=== PATIENT | female | born 1990 | race Caucasian/White ===

== ENCOUNTER 2021-12-16 08:45 | Emergency (ER) | payer OTHER, SELFPAY ==
[2021-12-16 08:52] VITALS: BP 150/106; PULSE 87; RESP 16; O2SAT 100; BMI 34.4
[2021-12-16 09:22] LABS: COVID-19 Test Negative (Negative)
--- NOTE | 2021-12-16 10:24 | ED.URI ---
HPI - URI/Sore Throat General Chief Complaint: Upper Respiratory Symptoms Stated Complaint: body aches chils vomiting sore throat Time Seen by Provider: 12/16/21 10:24 Source: patient Mode of arrival: ambulatory Limitations: no limitations History of Present Illness HPI Narrative: 31 yr old female presents requesting COVID testing. Patient is experiencing body aches, headache, fatigue, fevers, chills, sore throat. Boyfriend at home is COVID positive. She tells me she has taken multiple at home test and they are negative. Fully vaccinated with 3 doses of pfizer.? Denies SOB, CP, BURK, weakness. Eating and drinking well. In good spirits. No other complaints at this time. MD elicited complaint: sore throat Consistency: constant Severity: mild Able to tolerate fluids by mouth: Yes Exacerbating factors: nothing Relieving factors: nothing Context: sick contacts (boyfriend + ) Treatments prior to arrival: none Related Data Allergies Allergy/AdvReac Type Severity Reaction Status Date / Time Unable to Assess Allergy Unverified 12/16/21 10:37 Review of Systems Review of Systems: Constitutional : + Fever, + Chills, + fatigue, + Malaise ENT/Mouth : + sore throat, No runny nose Eyes: No Discharge Cardiovascular : No Chest Pain, No SOB Respiratory : No Cough, No Sputum Gastrointestinal : No Nausea, No Vomiting, No Diarrhea Genitourinary : No Dysuria, No Urinary Frequency Musculoskeletal : + Myalgia Skin : No rash Neuro : No Headache Yes all other systems are reviewed and are negative [facility] Past Medical History Attestation statement: The following information was validated with the patient. Source: old records reviewed and nursing notes reviewed Medical History No known health problems Social History Social History Advance Directives: No Advance Directives Information Provided: No Patient : No Physical Exam Vital Signs: Vital Signs: Last Vital Signs Pulse 87 12/16/21 08:52 Resp 16 12/16/21 08:52 BP 150/106 H 12/16/21 08:52 Pulse Ox 100 12/16/21 08:52 BMI result Body Mass Index 34.4 Vital signs stable patient noted to be hypertensive, will repeat prior to discharge all other vital signs are stable Appearance: Alert.? Oriented X3.? No acute distress.? Head: Normocephalic, atraumatic, no step-offs or deformities Eyes: Pupils equal, round and reactive to light.?? Neck: Normal inspection.? Neck supple.? CVS: Normal heart rate and rhythm.? Pulses normal.? Respiratory: No respiratory distress.? Breath sounds normal.? Abdomen: Soft and nontender.? Skin: Skin warm and dry.? Normal skin color.? Normal skin turgor.? Extremities: No lower extremity edema.? No calf ttp. 5/5 strength to bilateral upper and lower extremities Neuro: Oriented X 3.? No motor deficit.? No sensory deficit. Course Reevaluation(s) Reevaluation #1: Patient is noted to be COVID negative, however symptoms consistent with COVID-19. Patient also has a close contact with somebody who is COVID positive therefore she will be treated as if she were positive. Vital signs are stable however.? I have given patient strict return precautions.? I have educated on diagnosis and treatment plan.? I have given them red flag symptoms and have told him to return with new or worsening symptoms.? I have outlined these on their discharge. Unlikely that this is ACS, patient denies chest pain. Lungs are clear unlikely pneumonia. Patient's vital signs stable, patient is not tachycardic, tachypneic or hypoxic, no calf tenderness to palpation, unlikely PE. Time: 10:38 MDM - URI/Sore Throat [facility] Narrative Medical decision making narrative: [id number] 31 yo female presents with covid like sx requesting test. PE benign Plan- covid test. Medical Records Attestation: I reviewed the patient's medical records. Lab Data Attestation: I reviewed the patient's lab results. Labs: Lab Results 12/16/21 Range/Units 08:56 COVID-19 (LIA) Negative (Negative) COVID-19 Clin Com See Note Critical Care Time Critical Care Time Critical Care Time: No Discharge Plan Discharge Clinical Impression: Upper respiratory infection Patient Disposition: Home, Self-Care Instructions: COVID-19 (Coronavirus Disease 2019) (ED) Additional Instructions: Take your medications as prescribed. If you were prescribed antibiotics today, it is important that you take your medication to their entirety, do not skip any doses, do not finish them early. Today tested negative for COVID-19 however your symptoms are consistent with COVID and you have had sick contacts. We will treat his of your COVID positive. Take Ibuprofen or Tylenol as needed for fevers or body aches. Quarantine for 5 days and ensure you wear a mask. After 5 days you should wear a mask for 5 days after that. Practice social distancing and good hand hygiene. Drink plenty of fluids. Follow-up with your primary care provider this week. Return to the emergency department with new or worsening symptoms. In case of emergency call 911 You can purchase a pulse oximeter from your local pharmacy or grocery store, and monitor your oxygen saturation if it goes below 94% you should return to the emergency department for further evaluation. Referrals: Physician,None [Primary Care Provider] - 2 days Stand Alone Forms: Work/School Release
[2021-12-16] MEDS: Ketorolac Tromethamine 30 MG/ML VIAL IM (10:59)
== END 2021-12-16 11:08 | disposition home or self-care (01) ==
PROVIDERS: Emergency Provider Emergency Medicine
DX: J06.9 Acute upper respiratory infection, unspecified (principal); M79.10 Myalgia, unspecified site; R51.9 Headache, unspecified; R50.9 Fever, unspecified; Z20.822 Contact with and (suspected) exposure to COVID-19
CPT/HCPCS: 87635; 96372; 99284; J1885

== ENCOUNTER 2022-05-11 00:27 | Emergency (ER) | payer OTHER, SELFPAY ==
--- NOTE | ~2022-05-11 | XR_ITS ---
EXAMINATION: XR FOOT, LEFT CLINICAL INFORMATION: Pain COMPARISON: None TECHNIQUE: AP, lateral, and oblique views of the left foot. FINDINGS: The bones and soft tissues are normal. No fracture. Alignment is anatomic. Joint spaces are maintained. XR/XR foot LT 2V IMPRESSION: Normal left foot.
[2022-05-11 00:53] VITALS: BP 159/105; PULSE 86; RESP 18; TEMP 37.3; O2SAT 99; BMI 39.5
[2022-05-11 02:23] LABS: UPreg QC Valid YES; Urine Pregnancy NEGATIVE (NEGATIVE)
--- NOTE | 2022-05-11 03:34 | ED_ITS ---
HPI - Extremity Injury (Lower) General Chief Complaint: Extremity Injury, Lower Stated Complaint: Foot pain/No Inj Time Seen by Provider: 05/11/22 01:09 History of Present Illness HPI Narrative: Patient is a 32-year-old female presents today with having left foot pain. Patient is normally stands up on a regular basis during her job. Complaining of increasing pain. The blister then redness to the pinky toe. Has no history diabetes. No fever no chills no systemic complaints. Patient home. No nausea no vomiting. Related Data Previous Rx's Medication Instructions Recorded doxycycline hyclate 100 mg capsule 100 mg PO BID cough 7 days #14 caps 05/11/22 Allergies Allergy/AdvReac Type Severity Reaction Status Date / Time No Known Allergies Allergy Verified 05/11/22 00:51 Review of Systems Review of Systems: Positive blister to the face into webspace on left. No systemic complaints. No nausea no vomiting no trauma. Yes all other systems are reviewed and are negative [facility] Past Medical History Attestation statement: The following information was validated with the patient. Medical History No known health problems Social History Social History Advance Directives: No Physical Exam Vital Signs: Vital Signs: Last Vital Signs Temp 99.2 F 05/11/22 00:53 Pulse 86 05/11/22 00:53 Resp 18 05/11/22 00:53 BP 159/105 H 05/11/22 00:53 Pulse Ox 99 05/11/22 00:53 O2 Del Method 05/11/22 00:53 BMI result Body Mass Index 39.5 Appearance: Alert. Oriented X3. No acute distress. Eyes: Pupils equal, round and reactive to light. ENT: Pharynx normal. Neck: Normal inspection. Neck supple. No lymph nodes noted. No crepitus CVS: Normal heart rate and rhythm. Pulses normal. Normal S1 and S2 Respiratory: No respiratory distress. Breath sounds normal. No Wheezing. No rales Abdomen: Soft and nontender. No rigidity. No distention. good BS x4 Skin: Skin warm and dry. Normal skin color. Normal skin turgor. Extremities: No lower extremity edema. Neurovascular intact to all extremities. No Lacerations. Examination of the left foot showed there is a blister between the 4th and 5th webspace. Surrounding decision area or erythema. Covering approximately 3 x 5 cm in size. Blanches. Capillary refill less than 2 seconds sensation intact. Neuro: Oriented X 3. No motor deficit. No sensory deficit. Moving all extermities. No slurred speech MDM - Extremity Injury (Lower) MDM Narrative Medical decision making narrative: X-ray showed no acute fracture. No evidence for osteomyelitis. test was negative. Will start patient on antibiotics for cellulitis. Web patient follow-up closely on an outpatient basis. Medical Records Attestation: I reviewed the patient's medical records. Lab Data Labs: Lab Results 05/11/22 Range/Units 02:09 Urine Test NEGATIVE (NEGATIVE) Discharge Plan Discharge Clinical Impression: Cellulitis Patient Disposition: Home, Self-Care Instructions: Cellulitis (ED) Prescriptions: New doxycycline hyclate 100 mg capsule 100 mg PO BID 7 Days Qty: 14 0RF Referrals: Physician,None [Primary Care Provider] - (Close follow-up with your physician in 3 days.)
== END 2022-05-11 03:59 | disposition home or self-care (01) ==
PROVIDERS: Emergency Provider Emergency Medicine Emergency Medical Services
DX: L03.116 Cellulitis of left lower limb (principal)
CPT/HCPCS: 73620; 81025; 99283